=== PATIENT | female | born 1955 | race African-American/Black ===

== ENCOUNTER 2018-07-03 14:52 | Inpatient (IN) | END 2018-07-14 18:25 | disposition home health service (06) | DRG 871 ==

== ENCOUNTER 2018-09-03 22:09 | Emergency (ER) | payer OTHER ==
[~2018-09-03] VITALS: Ht 175.3 cm; Wt 94.0 kg
[~2018-09-03 22:09] MED LIST: ASPI-903 PO; ATOR20TA38 PO; CHOL100062 PO; GUAI120S26 PO; HYDR-3980 PO; LACT1CAP28 PO; LOSA50TA14 PO; METF100010 PO; METO-429 PO; SITA100T11 PO; Work Note
[2018-09-03 22:11] VITALS: Ht 175.3 cm; Wt 94.0 kg
[2018-09-03] MEDS ORDERED: ONDANSETRON (ODT) 4 MG TAB ODT STA (23:07)
[2018-09-03] MEDS ORDERED: HYDROCODONE/APAP (10/325) TAB PO ONE (23:30)
[2018-09-04] MEDS ORDERED: HYDR-3980 PO (00:21)
--- NOTE | 2018-09-04 00:24 | ERD ---
ER Documentation Chief Complaint Chief Complaint pain in all extremities, worse in legs- hx of recent DVT. no CP/SOB HPI 63-year-old female with recent hospitalization for possible sepsis of unclear etiology. The patient was also recently diagnosed with a lower extremity, left- sided DVT restarted on Eliquis 3 days ago. Since the patient's discharge she has been expensing upper and lower extremity myalgias that are moderate and throbbing. She denies any chest pain or shortness of breath. No pleuritic pain. The patient had an ultrasound of her upper extremities performed yesterday without results at this time. ROS All systems reviewed and are negative except as per history of present illness. Medications Home Meds Active Scripts Hydrocodone/Acetaminophen (Gamerco 10-325 Tablet) 1 Each Tablet, 1 TAB PO Q6H PRN for PAIN, #5 TAB Prov:BETO VALDOVINOS MD 09/04/18 Lactobacillus Rhamnosus GG (Culturelle) 1 Each Capsule, 1 CAP PO BID for 10 Days , #20 CAP otc Prov:KARUNA TAPIA MD 07/13/18 Ocgzeiemfbz-X-Vyafklunan Hb* (Guaifenesin* DM Syrup) 120 Ml Syrup, 10 ML PO Q4H PRN for COUGH for 1 Day Prov:KARUNA TAPIA MD 07/13/18 Metoprolol Tartrate* (Lopressor*) 50 Mg Tab, 50 MG PO BID for 10 Days, #20 TAB Prov:KARUNA TAPIA MD 07/13/18 [Work Note] No Conflict Check This is to certify that this patient was admitted to [facility] from 07/03/2018 under my care. The patient is still hospitalized. The patient's daughter Charu Glimore was with the patient in the hospital from the day of admission. Please excuse her from work until 07/17/2018 as she needs to take care of her mother. Prov:DERIK MATUTE NP 07/07/18 Reported Medications Hydrocodone/Acetaminophen (Gamerco 10-325 Tablet) 1 Each Tablet, 1 EACH PO Q6 PRN for SEVERE PAIN LEVEL 7-10, TAB 07/03/18 Sitagliptin* (Januvia*) 100 Mg Tablet, 100 MG PO DAILY, #30 TAB 07/03/18 Aspirin* (Aspirin* Chew) 81 Mg Tab.chew, 81 MG PO DAILY, TAB.CHEW 07/03/18 Losartan Potassium* (Losartan Potassium*) 50 Mg Tablet, 50 MG PO DAILY, TAB 07/03/18 Cholecalciferol* (Vitamin D3*) 1,000 Unit Tablet, 1000 UNIT PO DAILY, TAB 07/03/18 Metformin Hcl* (Metformin Hcl*) 1,000 Mg Tablet, 1000 MG PO WITH BREAKFAST DINNE, #30 TAB 07/03/18 Atorvastatin Calcium* (Atorvastatin Calcium*) 20 Mg Tablet, 20 MG PO QHS, #30 TAB 07/03/18 Allergies Allergies: Coded Allergies: No Known Drug Allergies (Verified Allergy, Mild, 07/31/13) PMhx/Soc History of Surgery: Yes (BILATERAL KNEES) Anesthesia Reaction: No Hx Neurological Disorder: No Hx Respiratory Disorders: No Hx Cardiac Disorders: Yes (HTN) Hx Psychiatric Problems: No Hx Miscellaneous Medical Probl: Yes (OBESITY, HTN , ARTHRITIS, DM .) Hx Alcohol Use: No Hx Substance Use: No Hx Tobacco Use: No FmHx Family History: No diabetes Physical Exam Vitals Vital Signs Date Temp Pulse Resp B/P (MAP) Pulse Ox O2 O2 Flow FiO2 Time Delivery Rate 09/03/18 98.1 71 20 159/89 94 Room Air 23:30 (112) 09/03/18 97.0 82 18 178/82 96 22:11 (114) Physical Exam General: Well developed, well nourished, no acute distress Head: Normocephalic, atraumatic. Eyes: Pupils equally reactive, EOM intact ENT: Moist mucous membranes Neck: Supple, no lymphadenopathy Respiratory: Lungs clear bilaterally, no distress Cardiovascular: RRR, no murmurs, rubs, or gallops Abdominal: Soft, non-tender, non-distended, no peritoneal signs : Deferred MSK: No edema, no unilateral swelling, 5/5 strength Neurologic: Alert and oriented, moving all extremities, normal speech, no focal weakness, no cerebellar signs Skin: No rash Psych: Normal mood Result Diagram: 09/03/18 2342 09/03/18 2342 Results 24 hrs Laboratory Tests Test 09/03/18 23:42 White Blood Count 5.2 10^3/ul Red Blood Count 3.92 10^6/ul Hemoglobin 10.4 g/dl Hematocrit 34.7 % Mean Corpuscular Volume 88.5 fl Mean Corpuscular Hemoglobin 26.5 pg Mean Corpuscular Hemoglobin Concent 30.0 g/dl Red Cell Distribution Width 14.9 % Platelet Count 259 10^3/UL Mean Platelet Volume 11.1 fl Immature Granulocytes % 0.400 % Neutrophils % 54.5 % Lymphocytes % 29.1 % Monocytes % 12.3 % Eosinophils % 3.1 % Basophils % 0.6 % Nucleated Red Blood Cells % 0.0 /100WBC Immature Granulocytes # 0.020 10^3/ul Neutrophils # 2.8 10^3/ul Lymphocytes # 1.5 10^3/ul Monocytes # 0.6 10^3/ul Eosinophils # 0.2 10^3/ul Basophils # 0.0 10^3/ul Nucleated Red Blood Cells # 0.0 10^3/ul Sodium Level 143 mmol/L Potassium Level 5.0 mmol/L Chloride Level 100 mmol/L Carbon Dioxide Level 28 mmol/L Anion Gap 15 Blood Urea Nitrogen 18 mg/dl Creatinine 0.62 mg/dl Est Glomerular Filtrat Rate mL/min > 60 mL/min Glucose Level 130 mg/dl Calcium Level 10.3 mg/dl Creatine Kinase 40 IU/L Current Medications Medications Dose Sig/Garfield Start Time Status Last (Trade) Ordered Route PRN Stop Time Admin Dose Reason Admin 1 tab ONCE ONCE 09/03/18 DC 09/03/18 Acetaminophen PO 23:30 23:53 / 09/03/18 23:31 Hydrocodone Bitart (Gamerco (10/325)) Ondansetron 4 mg ONCE STAT 09/03/18 DC 09/03/18 HCl (Zofran ODT 23:07 23:54 Odt) 09/03/18 23:08 Procedures/MDM LAB INTERPRETATION: * No evidence of infection or rhabdomyolysis MEDICAL DECISION MAKING: The patient presents with nonspecific myalgias. She was recently diagnosed with a DVT and started on Eliquis. The patient's pain however preceded Eliquis I do not believe this is an adverse drug reaction. This is possibly secondary to patient's recent hospitalization but is very nonspecific. No evidence of acute vascular process. Compartments are soft with no focal tenderness noted on exam. Low concern for upper extremity DVT the patient had an ultrasound yesterday. I do not believe repeat would change outcomes as the patient is appropriately anticoagulated. She exhibits no signs or symptoms concerning for pulmonary embolism. ER COURSE: * Laboratory testing shows no evidence of muscle breakdown. At this point the patient can be safely discharged with close primary care follow-up as is already planned. CONSULTATION: None DISPOSITION PLAN: The patient does not have an identifiable emergent medical condition that warrants inpatient hospitalization at this time. The patient is deemed safe for discharge with outpatient follow-up. We discussed follow up with the patient's primary care doctor within 24 to 48 hours as needed. We also discussed return to the emergency room for worsening symptoms or worsening condition. Outpatient referral: None required Discharge Medications: Gamerco NARCOTIC MEDICATION: The patient has been prescribed a narcotic medication during this encounter. The patient has been warned about the use of narcotics. The patient should not drive or operate heavy machinery while taking this medication. The patient was also warned about the addictive properties of narcotic medications. Narcan prescription was NOT provided given the following criteria: 1. No more than 5 tablets of Gamerco 10 mg or 10 tablets of Gamerco 5 mg were prescribed. 2. Concomitant opiate and benzodiazepine prescriptions were not provided. 3. There is no obvious evidence of prior history of opiate abuse or overdose. Departure Diagnosis: Primary Impression: Myalgia Condition: Stable Patient Instructions: Myalgias Referrals: COMMUNITY CLINICS YOU HAVE RECEIVED A MEDICAL SCREENING EXAM AND THE RESULTS INDICATE THAT YOU DO NOT HAVE A CONDITION THAT REQUIRES URGENT TREATMENT IN THE EMERGENCY DEPARTMENT. FURTHER EVALUATION AND TREATMENT OF YOUR CONDITION CAN WAIT UNTIL YOU ARE SEEN IN YOUR DOCTORS OFFICE WITHIN THE NEXT 1-2 DAYS. IT IS YOUR RESPONSIBILITY TO MAKE AN APPOINTMENT FOR FOLOW-UP CARE. IF YOU HAVE A PRIMARY DOCTOR --you should call your primary doctor and schedule an appointment IF YOU DO NOT HAVE A PRIMARY DOCTOR YOU CAN CALL OUR PHYSICIAN REFERRAL HOTLINE AT IF YOU CAN NOT AFFORD TO SEE A PHYSICIAN YOU CAN CHOSE FROM THE FOLLOWING [facility] CLINICS [facility] [address] [facility] [address] [facility]. [facility] [address] [facility] [address] [facility] [address] [facility] [facility] [address] [facility] [facility] YOU HAVE RECEIVED A MEDICAL SCREENING EXAM AND THE RESULTS INDICATE THAT YOU DO NOT HAVE A CONDITION THAT REQUIRES URGENT TREATMENT IN THE EMERGENCY DEPARTMENT. FURTHER EVALUATION AND TREATMENT OF YOUR CONDITION CAN WAIT UNTIL YOU ARE SEEN IN YOUR DOCTORS OFFICE WITHIN THE NEXT 1-2 DAYS. IT IS YOUR RESPONSIBILITY TO MAKE AN APPOINTMENT FOR FOLOW-UP CARE. IF YOU HAVE A PRIMARY DOCTOR --you should call your primary doctor and schedule and appointment IF YOU DO NOT HAVE A PRIMARY DOCTOR YOU CAN CALL OUR PHYSICIAN REFERRAL HOTLINE AT . IF YOU CAN NOT AFFORD TO SEE A PHYSICIAN YOU CAN CHOSE FROM THE FOLLOWING [facility] INSTITUTIONS: [facility] [address] [place] [address] [facility] [address] [place], [place] [id number] [place] [address] [address] [place] [address] Additional Instructions: Call your primary care doctor TOMORROW for an appointment during the next 1 WEEK.Tell the unit secretary that you were referred from this facility.See the doctor sooner or return here if your condition worsens before your appointment time. BETO VALDOVINOS MD Sep 04, 2018 00:24
[2018-09-04 01:45] VITALS: BP 159/89; PULSE 82; RESP 20
== END 2018-09-04 01:50 | disposition home or self-care (01) ==
LOC: E/R 22:09
DX: M79.18 Myalgia, other site (principal); I10 Essential (primary) hypertension; E11.9 Type 2 diabetes mellitus without complications; E66.9 Obesity, unspecified; Z79.82 Long term (current) use of aspirin; Z79.84 Long term (current) use of oral hypoglycemic drugs
CPT/HCPCS: 36415; 80048; 82550; 85025; 93005; Z7502; Z7610

== ENCOUNTER 2018-12-04 16:51 | Emergency (ER) | payer OTHER ==
[~2018-12-04] VITALS: Ht 165.1 cm; Wt 75.0 kg
[~2018-12-04 16:51] MED LIST changes: +GUAI120S25 PO; -GUAI120S26 PO
[2018-12-04] MEDS ORDERED: SOD CHLORIDE 0.9% 1,000 ML IV STA (17:07)
[2018-12-04 17:28] VITALS: Ht 165.1 cm; Wt 75.0 kg
[2018-12-04] MEDS ORDERED: NA PHOSPHATE/BIPHOS 133 ML ENEMA PR ONE (18:00)
[2018-12-04] MEDS ORDERED: IOHEXOL 300MG/ML 150 ML BTL ONE (18:15)
[2018-12-04] MEDS ORDERED: SOD CHLORIDE 0.9% 100 ML ONE (18:15)
[2018-12-04] MEDS ORDERED: POLY17PO6 PO (19:42)
--- NOTE | 2018-12-04 19:50 | ERD ---
ER Documentation Chief Complaint Chief Complaint weakness, near syncope HPI This is a 63-year-old female who has chronic pain from sciatica. She says her sciatica was worse than usual today so she took extra [place]. She then was try ing to have a bowel movement, she was sitting on the toilet and was pushing and straining trying hard to have a bowel movement she was unsuccessful due to constipation. She then became very sweaty and dizzy and told her daughter she felt this way. The daughter then called the paramedics. The patient never lost consciousness but was getting very drowsy and she laid down to try to help her symptoms get better. Paramedics report that she had elevated blood sugar and also had blood pressure of systolic in the 90s. Patient states she had no headache chest pain difficulty breathing. She was feeling better on arrival to the ER. On arrival here she keeps telling me how bad she wants to try to use the bathroom to have a bowel movement ROS All systems reviewed and are negative except as per history of present illness. Medications Home Meds Active Scripts Polyethylene Glycol* (Miralax*) 17 Gm Powd.pack, 17 GM PO DAILY, #7 Prov:DEVORA DOSHI DO 12/04/18 Hydrocodone/Acetaminophen ([place] 10-325 Tablet) 1 Each Tablet, 1 TAB PO Q6H PRN for PAIN, #5 TAB Prov:BETO VALDOVINOS MD 09/04/18 Lactobacillus Rhamnosus GG (Culturelle) 1 Each Capsule, 1 CAP PO BID for 10 Days, #20 CAP otc Prov:KARUNA TAPIA MD 07/13/18 Lwboqttekdy-O-Amwszabmne Hb* (Guaifenesin* DM Syrup) 120 Ml Syrup, 10 ML PO Q4H PRN for COUGH for 1 Day Prov:KARUNA TAPIA MD 07/13/18 Metoprolol Tartrate* (Lopressor*) 50 Mg Tab, 50 MG PO BID for 10 Days, #20 TAB Prov:KARUNA TAPIA MD 07/13/18 [Work Note] No Conflict Check This is to certify that this patient was admitted to [facility] from 07/03/2018 under my care. The patient is still hospitalized. The patient's daughter Charu Gilmore was with the patient in the hospital from the day of admission. Please excuse her from work until 07/17/2018 as she needs to take care of her mother. Prov:DERIK MATUTE CUSTOMER TRAINING SPECIALIST 07/07/18 Reported Medications Hydrocodone/Acetaminophen ([place] 10-325 Tablet) 1 Each Tablet, 1 EACH PO Q6 PRN for SEVERE PAIN LEVEL 7-10, TAB 07/03/18 Sitagliptin* (Januvia*) 100 Mg Tablet, 100 MG PO DAILY, #30 TAB 07/03/18 Aspirin* (Aspirin* Chew) 81 Mg Tab.chew, 81 MG PO DAILY, TAB.CHEW 07/03/18 Losartan Potassium* (Losartan Potassium*) 50 Mg Tablet, 50 MG PO DAILY, TAB 07/03/18 Cholecalciferol* (Vitamin D3*) 1,000 Unit Tablet, 1000 UNIT PO DAILY, TAB 07/03/18 Metformin Hcl* (Metformin Hcl*) 1,000 Mg Tablet, 1000 MG PO WITH BREAKFAST DINNE, #30 TAB 07/03/18 Atorvastatin Calcium* (Atorvastatin Calcium*) 20 Mg Tablet, 20 MG PO QHS, #30 TAB 07/03/18 Allergies Allergies: Coded Allergies: No Known Drug Allergies (Verified Allergy, Mild, 07/31/13) PMhx/Soc History of Surgery: Yes (BILATERAL KNEES) Anesthesia Reaction: No Hx Neurological Disorder: No Hx Respiratory Disorders: No Hx Cardiac Disorders: Yes (HTN) Hx Psychiatric Problems: No Hx Miscellaneous Medical Probl: Yes (OBESITY, ARTHRITIS, DM ) Hx Alcohol Use: No Hx Substance Use: No Hx Tobacco Use: No Smoking Status: Never smoker FmHx Family History: No coronary disease Physical Exam Vitals Vital Signs Date Temp Pulse Resp B/P (MAP) Pulse Ox O2 O2 Flow FiO2 Time Delivery Rate 12/04/18 97.8 62 18 89/62 (71) 97 17:28 Physical Exam Const: Well-developed, well-nourished Head: Atraumatic, normocephalic Eyes: Normal Conjunctiva, PERRLA, EOMI, normal sclera, no nystagmus ENT: Normal External Ears, Nose and Mouth, moist mucus membranes. Neck: Full range of motion. No meningismus, no lymphadenopathy. Resp: Clear to auscultation bilaterally, no wheezing, rhonchi, rales Cardio: Regular rate and rhythm, no murmurs, S1 S2 present Abd: Soft, non tender x 4, non distended. Normal bowel sounds, no guarding or rebound, no pulsitile abdominal masses or bruits Skin: No petechiae or rashes, no ecchymosis , no maculopapular rash Back: No midline or flank tenderness Ext: No cyanosis, or edema, FROM x 4, normal inspection, neurovascularly intact x 4 Neur: Awake and alert, STR 5/5 x 4, sensation intact x 4, no focal findings, cerebellum intact Psych: Normal Mood and Affect Result Diagram: 12/04/18172912/04/181729 Results 24 hrs Laboratory Tests Test 12/04/18 17:30 White Blood Count 11.1 10^3/ul Red Blood Count 4.46 10^6/ul Hemoglobin 12.1 g/dl Hematocrit 39.5 % Mean Corpuscular Volume 88.6 fl Mean Corpuscular Hemoglobin 27.1 pg Mean Corpuscular Hemoglobin Concent 30.6 g/dl Red Cell Distribution Width 15.8 % Platelet Count 224 10^3/UL Mean Platelet Volume 10.7 fl Immature Granulocytes % 0.900 % Neutrophils % 72.3 % Lymphocytes % 15.9 % Monocytes % 10.1 % Eosinophils % 0.4 % Basophils % 0.4 % Nucleated Red Blood Cells % 0.0 /100WBC Immature Granulocytes # 0.100 10^3/ul Neutrophils # 8.0 10^3/ul Lymphocytes # 1.8 10^3/ul Monocytes # 1.1 10^3/ul Eosinophils # 0.1 10^3/ul Basophils # 0.1 10^3/ul Nucleated Red Blood Cells # 0.0 10^3/ul Prothrombin Time 15.4 Sec Prothrombin Time Ratio 1.2 INR International Normalized Ratio 1.21 Activated Partial Thromboplast Time 27.7 Sec Sodium Level 140 mmol/L Potassium Level 4.3 mmol/L Chloride Level 103 mmol/L Carbon Dioxide Level 23 mmol/L Anion Gap 14 Blood Urea Nitrogen 22 mg/dl Creatinine 0.95 mg/dl Est Glomerular Filtrat Rate mL/min > 60 mL/min Glucose Level 223 mg/dl Calcium Level 11.1 mg/dl Troponin I < 0.012 ng/ml Current Medications Medications Dose Sig/Garfield Start Time Status Last (Trade) Ordered Route PRN Stop Time Admin Dose Reason Admin Sodium 1,000 ml @ Q1H STAT 12/04/18 DC 12/04/18 Chloride 1,000 mls/hr IV 17:07 18:03 12/04/18 18:06 Sodium 133 ml ONCE ONCE 12/04/18 DC 12/04/18 Biphosphate/ ND 18:00 18:02 Sodium 12/04/18 18:01 Phosphate (Fleet Enema) IV Flush 10 ml STK-MED 12/04/18 DC (NS 10 ml) ONCE .ROUTE 18:15 12/04/18 18:16 Sodium 100 ml @ ud STK-MED 12/04/18 DC Chloride ONCE .ROUTE 18:15 12/04/18 18:16 Iohexol 150 ml STK-MED 12/04/18 DC (Omnipaque ONCE .ROUTE 18:15 300mg/ ml) 12/04/18 18:16 Procedures/MDM Ordering MD: DEVORA DOSHI DO Location: E/R Room/Bed: PROCEDURE: CT abdomen and pelvis with contrast CLINICAL INDICATION: Abdominal pain TECHNIQUE: Continues 2.5 mm axial images were obtained from the domes of the diaphragms to the inferior pubic rami following intravenous injection of 100 cc of Isovue 300. The calculated dose length product (DLP) = 1056.49 mGy-cm. Exam CTDlvol = 17.01 mGy. One or more of the following dose reduction techniques were used: Automated exposure control, adjustment of the mA and or KV according to patient size, or use of iterative reconstruction technique. DICOM images are available. COMPARISON: None. FINDINGS: Lung bases are clear. No pleural pericardial fluid is seen. Liver, gallbladder, spleen, adrenals, and kidneys are within normal limits. There is no obstructive uropathy. Pancreas enhances homogeneously. There is borderline prominence the pancreatic duct. No acute pancreatic inflammation is seen. Aorta is normal in caliber. No pathologically enlarged mesenteric lymph nodes are identified. The stomach and small bowel loops are within normal limits. There is no small bowel dilatation or obstruction. No free fluid, free air, abscess is noted in the upper abdomen CT pelvis: Images through the pelvis demonstrate no free fluid, free air, abscess. Bladder is partially distended. There is mild questionable thickening of the bladder wall. Uterus and adnexa are within normal limits. Evaluation of colon demonstrates moderate constipation through the descending colon and sigmoid. No diverticulosis, diverticulitis or acute colitis is seen. Normal appendix and terminal ileum are identified. There are no pathologically enlarged iliac chain lymph nodes. Moderate calcification is noted of the iliac vessels. No destructive bony lesions are seen. There is mild degenerative sclerosis of bilateral SI joints. IMPRESSION: 1. No acute inflammatory process, mass, or adenopathy. 2. Moderate constipation in the descending colon and rectum. No acute diverticulitis or colitis. 3. Normal appendix and terminal ileum. 4. Borderline prominence of the pancreatic duct. Correlation with amylase levels recommended. No obvious acute pancreatitis is seen by CT scan. If indicated the pancreatic duct can be further evaluated with MRCP. 5. Mild thickening of the bladder wall greater than expected for decompressed state. Recommend correlation with urinalysis RPTAT: HH .Trevon Guzman MD, MD Date Time Electronically viewed and signed by .Trevon Guzman MD, MD on 12/04/2018 19:09 .W/ CC: DEVORA DOSHI DO [id number] MR #: [id number] DOS: 12/04/18 1707 Ordering MD: DEVORA DOSHI DO Location: E/R Room/Bed: PROCEDURE: CT head CLINICAL INDICATION: Syncope TECHNIQUE: Contiguous 2.5 mm axial images were obtained from the vertex to the skull base. No intravenous contrast was administered. The calculated dose length product (DLP) = 634.23 mGy-cm. The CTDlvol = 39.04 mGy. One or more of the following dose reduction techniques were used: Automated exposure control, adjustment of the mA and or KV according to patient size, or use of iterative reconstruction technique. DICOM images are available. COMPARISON: 07/03/2018 FINDINGS: There is no acute intracranial hemorrhage or acute territorial infarct. A small 5 mm frontal parafalcine dermoid cyst is seen without significant mass effect or edema. Otherwise no intracranial mass or mass effect is identified. Age appropriate cortical and central atrophy is seen. Ventricles are normal in size and configuration. Minimal small vessel ischemic changes in the periventricular white matter. No visualized paranasal sinuses are normally aerated. Bony calvarium is unremarkable. IMPRESSION: 1. No acute intracranial hemorrhage or acute territorial infarct. 2. 5 mm parafalcine dermoid cyst without significant mass effect or edema. 3. Age related atrophy and mild small vessel ischemic change. 4. No interval change from prior RPTAT: HH .Trevon Guzman MD, Date Time Electronically viewed and signed by .Trevon Guzman MD, on 12/04/2018 18:58 .W/ CC: DEVORA DOSHI DO [id number] MR #: [id number] DOS: 12/04/18 1707 Ordering MD: DEVORA DOSHI DO Location: E/R Room/Bed: PROCEDURE: XR Chest. CLINICAL INDICATION: chest pain, syncope TECHNIQUE: Single frontal view of the chest was obtained COMPARISON: 02/23/08 FINDINGS: The heart and mediastinum are within normal limits. The lungs are clear. There is no pleural effusion or pneumothorax. RPTAT: AA IMPRESSION: No acute disease. .Marvin Traore MD, MD Date Time Electronically viewed and signed by .Marvin Traore MD, MD on 12/04/2018 17:50 .S/ CC: DEVORA DOSHI DO [id number] The patient has had stable vital signs with adequate blood pressure during her visit here. She then had the urge to have a large bowel movement. She was able to evacuate a large amount of stool from her colon without getting an enema. She said she feels much better now. She is also saying that she is ready to be discharged home and she feels much better. She says she should not have taken the extra [place] because she is very sensitive to hydrocodone and tends to over sedate her. Patient presented with probably a bit too much hydrocodone in her system with vasovagal episode of trying to have a bowel movement creating diaphoresis sweatiness and hypertension that resolved. Departure Diagnosis: Primary Impression: Constipation Constipation type: unspecified constipation type Qualified Codes: K59.00 - Constipation, unspecified Additional Impression: Overdose of analgesic Encounter type: initial encounter Injury intent: accidental or unintentional Qualified Codes: T39.91XA - Poisoning by unspecified nonopioid analgesic, antipyretic and antirheumatic, accidental (unintentional), initial encounter Condition: Stable Patient Instructions: Constipation (Adult) Referrals: DOCTOR,NOT ON STAFF (PCP) DEVORA DOSHI DO Dec 04, 2018 19:50
[2018-12-04 20:15] VITALS: BP 109/62; PULSE 95; RESP 18
== END 2018-12-04 20:30 | disposition home or self-care (01) ==
LOC: E/R 16:51
DX: K59.00 Constipation, unspecified (principal); T39.91XA Poisoning by unspecified nonopioid analgesic, antipyretic and antirheumatic, accidental (unintentional), initial encounter; I10 Essential (primary) hypertension; E11.9 Type 2 diabetes mellitus without complications; E66.9 Obesity, unspecified; R07.9 Chest pain, unspecified; R55 Syncope and collapse; Z68.27 Body mass index [BMI] 27.0-27.9, adult; Z79.82 Long term (current) use of aspirin; Z79.84 Long term (current) use of oral hypoglycemic drugs
CPT/HCPCS: 36415; 70450; 71045; 74177; 80048; 84484; 85025; 85610; 85730; 93005; J7030; Q9967; Z7502; Z7610